=== PATIENT | male | born 1950 | race Caucasian/White ===

== ENCOUNTER 2024-04-17 11:06 | Outpatient (CLI) | payer MEDICARE, SELFPAY ==
--- NOTE | ~2024-04-17 | MR_ITS ---
MRI of the brain Clinical History: Frequent falls Technique: Axial and sagittal T1-weighted images were acquired. These were followed by axial T2-weigh abiodun, diffusion weighted, gradient, and FLAIR images. Findings: No acute infarct, intracranial hemorrhage or mass lesion seen. No significant signal abnorm ality seen in the brain parenchyma. Ventricles and subarachnoid spaces are unremarkable. Orbits are unremarkable. Paranasal sinuses and m astoid air cells are clear. Major intracranial flow-voids are intact. Sagittal midline structures are intact. IMPRESSION: No significant abnormality seen. Reviewed, dictated and finalized at location M.
== END 2024-04-17 11:07 | disposition home or self-care (01) ==
PROVIDERS: PCP Nurse Practitioner Family; Visit Provider Nurse Practitioner Family
DX: R29.6 Repeated falls (principal); R26.9 Unspecified abnormalities of gait and mobility
CPT/HCPCS: 70551